=== PATIENT | male | born 1960 | race Caucasian/White ===

== ENCOUNTER 2020-09-27 14:31 | Emergency (ER) | payer OTHER ==
[2020-09-27 15:59] LABS: BASOPHIL 0.3 % (0-2); EOSINOPHIL 0.8 % (0-5); HCT 45.6 % (42.0-52.0); HGB 16.2 g/dl (13.2-18.0); LYMPHOCYTE 21.6 % (15-48); MCH 32.7 pg (25.0-31.0); MCHC 35.5 g/dL (32.0-36.0); MCV 91.9 fL (78.0-100.0); MONOCYTE 12.3 % (0-12); MPV 10.7 fL (6.0-9.5); NEUTROPHIL 64.7 % (41-80); NRBC 0; PLT 142 K/uL (150-400); RBC 4.96 M/uL (4.70-6.00); RDW 12.1 % (11.5-14.0); WBC 3.9 K/uL (4.0-10.5)
[2020-09-27 16:42] LABS: ALBUMIN 3.6 g/dL (3.4-5.0); BILIRUBIN - TOTAL 0.6 mg/dL (0.2-1.0); BUN/CREAT RATIO (CALC) 30.9 RATIO; CREATININE 0.81 mg/dL (0.67-1.17); GLOBULIN (CALCULATION) 3.2 g/dL; POTASSIUM 3.7 mmol/L (3.5-5.1); TOTAL PROTEIN 6.8 g/dL (6.4-8.2)
== END 2020-09-27 20:07 | disposition home or self-care (01) ==
LOC: FER 14:31
PROVIDERS: Nurse Practitioner Family
DX: U07.1 COVID-19 (principal); I10 Essential (primary) hypertension
CPT/HCPCS: 36415; 71045; 80053; 85025; J7050; M0239